=== PATIENT | male | born 1955 | race Caucasian/White ===

== ENCOUNTER 2020-07-16 07:53 | Emergency (ER) | payer MEDICARE ==
[~2020-07-16] VITALS: Ht 190.5 cm; Wt 79.5 kg
[2020-07-16 08:11] VITALS: TEMP 97.6
[2020-07-16 08:52] LABS: BASO # 0.1 (0.0-0.2); BASO % 0.5 % (0.0-2.0); EOS # 0.1 (0.0-0.7); EOS % 1.2 % (0-4.0); GRAN # 7.8 (1.4-6.5); GRAN % 72.8 % (42.2-75.2); HEMATOCRIT 43.3 % (42.0-52.0); HEMOGLOBIN 15.2 g/dl (13.5-18.0); INR 1.1 (0.8-3.0); LYMPH # 1.3 (1.2-3.4); MEAN CELL VOLUME 96 fl (80.0-100.0); MEAN CORPUSCULAR HEMOGLOBIN 34 pg (27.0-31.0); MEAN CORPUSCULAR HGB CONC 35 g/dl (33.0-37.0); MONO # 1.4 (0.1-0.6); PLATELET COUNT 168 K/mm3 (130-400); PROTHROMBIN TIME 11.9 SECONDS (9.7-12.8); RED BLOOD COUNT 4.51 M/mm3 (4.20-5.60); REDCELL DISTRIBUTION WIDTH-CV 13.4 % (11.5-14.5)
[2020-07-16 08:55] LABS: PARTIAL THROMBOPLASTIN TIME 31.3 SECONDS (26.0-37.0)
[2020-07-16 08:56] LABS: CALCIUM 9.2 mg/dL (8.4-10.2); CREATININE, serum 0.64 (0.66-1.25); POTASSIUM 3.2 mmol/L (3.4-5.0)
[2020-07-16] MEDS ORDERED: ELIQUIS 5MG PO (09:04)
[2020-07-16] MEDS ORDERED: NORCO 325 MG-51 TAB PO (09:05)
[2020-07-16 09:32] VITALS: BP 129/80; PULSE 91
== END 2020-07-16 09:35 | disposition home or self-care (01) ==
LOC: COL.ER 07:53
PROVIDERS: Physician Assistant
DX: I82.411 Acute embolism and thrombosis of right femoral vein (principal); F17.200 Nicotine dependence, unspecified, uncomplicated; Z86.12 Personal history of poliomyelitis; Z88.2 Allergy status to sulfonamides

== ENCOUNTER 2020-07-19 09:54 | Inpatient (IN) | payer MEDICARE, MEDICAID ==
[~2020-07-19] VITALS: Ht 190.5 cm; Wt 77.0 kg
[~2020-07-19 09:54] MED LIST: ELIQUIS 5MG PO; NORCO 325 MG-51 TAB PO
[2020-07-19 10:57] LABS: BASO # 0.1 (0.0-0.2); BASO % 0.5 % (0.0-2.0); EOS # 0.1 (0.0-0.7); EOS % 0.8 % (0-4.0); GRAN # 7.7 (1.4-6.5); GRAN % 75.9 % (42.2-75.2); HEMATOCRIT 41.2 % (42.0-52.0); HEMOGLOBIN 14.4 g/dl (13.5-18.0); LYMPH # 0.9 (1.2-3.4); MEAN CELL VOLUME 95 fl (80.0-100.0); MEAN CORPUSCULAR HEMOGLOBIN 33 pg (27.0-31.0); MEAN CORPUSCULAR HGB CONC 35 g/dl (33.0-37.0); MEAN PLATELET VOLUME 9.3 fl (7.4-10.4); MONO # 1.4 (0.1-0.6); MONO % 13.3 % (1.7-9.3); PLATELET COUNT 369 K/mm3 (130-400); RED BLOOD COUNT 4.34 M/mm3 (4.20-5.60)
[2020-07-19 11:19] LABS: ALANINE AMINOTRANSFERASE 25 U/L (4-49); ALKALINE PHOSPHATASE 95 U/L (50-136); ANION GAP 9 mmol/L (7-16); AST,SGOT 39 U/L (15-37); BLOOD UREA NITROGEN 6 mg/dL (9-20); CARBON DIOXIDE 29 mmol/L (22-30); CHLORIDE 98 mmol/L (98-107); GLUCOSE 106 mg/dL (74-106); POTASSIUM 3.1 mmol/L (3.4-5.0); SODIUM 136 mmol/L (137-145); TOTAL PROTEIN 8.1 gm/dL (6.4-8.2)
[2020-07-19 11:29] LABS: TROPONIN-I < 0.012 ng/mL (0.000-0.035)
[2020-07-19 11:57] LABS: C-REACTIVE PROTEIN 32.8 mg/dL (0.0-0.9)
[2020-07-19 13:35] LABS: INR 1.7 (0.8-3.0); PROTHROMBIN TIME 19.5 SECONDS (9.7-12.8)
[2020-07-19] MEDS ORDERED: LEVOXYL0.125 MG PO (14:49)
[2020-07-19] MEDS ORDERED: LEVOXYL0.137 MG PO (15:24)
[2020-07-19] MEDS ORDERED: ELIQUIS 5MG PO (15:24)
[2020-07-19 16:00] VITALS: BP 153/68; PULSE 101; TEMP 98.4
[2020-07-19 16:22] VITALS: BP 153/68; PULSE 102; TEMP 98.4
[2020-07-19 16:45] VITALS: BP 133/61; PULSE 102; TEMP 97.4
--- NOTE | 2020-07-19 16:52 | NUR ---
PT C/O PROFUSE SWEATING OF FACE. VSS, UPDATED ALLISON PA ON PT STATUS.
[2020-07-19 19:02] VITALS: BP 148/63; PULSE 101; TEMP 98.7
[2020-07-19 23:59] VITALS: BP 153/68; PULSE 86; TEMP 98.5
[2020-07-20] VITALS (7 sets, daily range): BP systolic 137–169; BP diastolic 67–75; PULSE 88–96; TEMP 98.4–99
--- NOTE | 2020-07-20 05:26 | NUR ---
Patient has rested well throughout the night. Calls for PRN pain medication about every 4 hours. Reassessments throughout the night and patient is asleep, but this morning patient states the medication is only "taking the edge off." He states he wants to talk to the doctor on rounds to possibly increase his pain medication. Will pass this along to day shift nurse. Lovenox administered per orders. Patient utilizes 1A with walker. Patient's lungs diminished bilaterally. Denies any further needs. Will continue to monitor.
[2020-07-20 06:53] LABS: BASO % 0.4 % (0.0-2.0); EOS # 0.1 (0.0-0.7); EOS % 0.7 % (0-4.0); GRAN # 7.8 (1.4-6.5); GRAN % 74.3 % (42.2-75.2); HEMATOCRIT 38.5 % (42.0-52.0); HEMOGLOBIN 13.1 g/dl (13.5-18.0); LYMPH # 1.1 (1.2-3.4); LYMPH % 10.8 % (20.0-51.0); MEAN CELL VOLUME 96 fl (80.0-100.0); MEAN CORPUSCULAR HEMOGLOBIN 33 pg (27.0-31.0); MEAN CORPUSCULAR HGB CONC 34 g/dl (33.0-37.0); MEAN PLATELET VOLUME 10.1 fl (7.4-10.4); MONO # 1.4 (0.1-0.6); MONO % 13.2 % (1.7-9.3); PLATELET COUNT 417 K/mm3 (130-400); REDCELL DISTRIBUTION WIDTH-CV 13.1 % (11.5-14.5)
[2020-07-20 07:05] LABS: CALCIUM 8.8 mg/dL (8.4-10.2); CREATININE, serum 0.52 (0.66-1.25); MAGNESIUM 1.7 mg/dL (1.6-2.3); POTASSIUM 3.4 mmol/L (3.4-5.0)
--- NOTE | 2020-07-20 07:57 | NUR ---
Patient resting in bed. He reports pain to his chest not relieved with norco. Hospitalist notifed & orders obtained. Patient given low dose of morphine per orders. Patient reports morphine did help when his was admitted throught the Er. Patient ate small amount of breakfast, minimal interest. Will continue to monitor.
--- NOTE | 2020-07-20 09:46 | NUR ---
Patient resting in bed. Reports the morphine made him lightheaded, but did not relieve pain. Next dose of [place] given, I discusses with him given [place] q4 hours to stay on top of pain and not getting behind. Patient provided with hygiene supplies. Will monitor.
--- NOTE | 2020-07-20 11:26 | NUR ---
Hospitalist rounded, increase in orders for pain medication. Medication per orders. Patient very dyspnic with exertion.
--- NOTE | 2020-07-20 14:22 | NUR ---
Patient pain still unmanaged at this time. notifed, morphine to be given one hour sooner.
--- NOTE | 2020-07-20 15:03 | NUR ---
Plan: To return home, lives independently. Assessment: Patient reports that he resides in an apartment locally. Patient shares that his Son Jorge Luis is his EMR contact . Patient reports that he obtains medications at [facility]. Patient reports his PCP is Dr. Bishop with [facility] on Jul 26. Patient reports that he uses a walker for mobility. Patient reports that he is interested in home health care but does not believe that insurance will cover it. Patient reports that he is concerned with medications cost. Action: SW educated patient about savings card through [employer] for patient copay card. Patient indicated that he has it but had not used it yet. Gave patient application for medication fund through [employer]. Will continue to work with client for support service and follow up on home health.
--- NOTE | 2020-07-20 17:38 | NUR ---
Patient sat up for dinner. Continues to refuse shower or assistance with bed bath. I stressed the importance of coughing deep breathing even if it hurts to prevent pnemonia. Orders for IS obtained. Patient has minimal interest in dinner. Pain medication to be given when next dose due.
--- NOTE | 2020-07-21 03:15 | NUR ---
information technology security manager called with reports of increased heart rate. Vitals-152/66, pulse 105, O2 Sat 93% resps 16, temp 98.3. Had been up to urinate and medicated with Hydrocodone for pain prior to. Call light in reach. Will monitor.
--- NOTE | 2020-07-21 03:17 | NUR ---
Called with c/o pain to chest area. Describing pain as constant ache with deep breathing. Hydrocodone given per dr order.
[2020-07-21 03:22] VITALS: BP 152/66; PULSE 105; TEMP 98.3
--- NOTE | 2020-07-21 03:41 | NUR ---
Still rating pain 7/10 on pain scale to chest-morphine given per dr order.
--- NOTE | 2020-07-21 05:00 | NUR ---
Patient has rested well throughout the night. PRN Jasper and morphine given as ordered and requested. Patient's pain level was at a 5/10 at the lowest. Patient states this is tolerable. Continues on Lovenox injections. Tolerates this well. Utilizes 1 assist from staff for ambulation to the restroom. Denies any further needs. Will continue to monitor.
[2020-07-21 06:15] LABS: BASO % 0.3 % (0.0-2.0); EOS % 0.3 % (0-4.0); GRAN # 10.7 (1.4-6.5); GRAN % 80.3 % (42.2-75.2); HEMATOCRIT 37.9 % (42.0-52.0); HEMOGLOBIN 12.8 g/dl (13.5-18.0); LYMPH # 1.1 (1.2-3.4); LYMPH % 7.9 % (20.0-51.0); MEAN CELL VOLUME 97 fl (80.0-100.0); MEAN CORPUSCULAR HEMOGLOBIN 33 pg (27.0-31.0); MEAN CORPUSCULAR HGB CONC 34 g/dl (33.0-37.0); MEAN PLATELET VOLUME 9.6 fl (7.4-10.4); MONO # 1.4 (0.1-0.6); MONO % 10.8 % (1.7-9.3); PLATELET COUNT 443 K/mm3 (130-400); RED BLOOD COUNT 3.91 M/mm3 (4.20-5.60); REDCELL DISTRIBUTION WIDTH-CV 13.2 % (11.5-14.5)
[2020-07-21 06:29] LABS: ALBUMIN 3.4 gm/dL (3.5-5.0); BILIRUBIN,TOTAL 1.1 mg/dL (0.0-1.0); CALCIUM 8.9 mg/dL (8.4-10.2); CREATININE, serum 0.55 (0.66-1.25); MAGNESIUM 1.6 mg/dL (1.6-2.3); POTASSIUM 3.9 mmol/L (3.4-5.0); TOTAL PROTEIN 7.1 gm/dL (6.4-8.2)
[2020-07-21 07:48] VITALS: BP 134/74; PULSE 72; TEMP 98.1
--- NOTE | 2020-07-21 09:42 | NUR ---
PATIENT WAS UP WALKING IN THE HALLWAYS WITH THERAPY THIS MORNING. PATIENT IS CURRENTLY RESTING IN BED. PATIENT RATING HIS PAIN A 7/10 ACROSS HIS LOW RIBS AND CHEST. PATIENT IS UNABLE TO DESCRIBE HIS PAIN. GIVEN PRN PAIN MEDICATION AT THIS TIME. PATIENT HAS GENERALIZED WEAKNESS. C/O DYSPNEA AND SOB WITH EXERTION. ALL LUNG BEASLEY DIMINISHED. PATIENT REPORTS HAVING A DIFFICULT TIME COUGHING DUE TO THE PAIN. TACHYCARDIA NOTED, OTHERWISE VSS. TELE IN PLACE. POTASSIUM REPLACED PER PROTOCOL. PATIENT REPORTS THAT HIS LEFT GLASSES LENS FELL OUT AND HE'S HAVING A HARD TIME WITH HIS VISION WITHOUT THAT LENS. PATIENT REQUESTED AN EYE PATCH TO BE PLACED OVER HIS LEFT EYE. EYE PATCH APPLIED WITH PAPER TAPE. CALL LIGHT WITHIN REACH. PATIENT DENIES ANY OTHER NEEDS AT THIS TIME. WILL CONTINUE TO MONITOR.
--- NOTE | 2020-07-21 10:47 | NUR ---
PATIENT CONTINUES TO REPORT HIS PAIN AT A 7/10 ON A 0-10 SCALE. PATIENT STATES THAT IT DID NOT COME DOWN MUCH WITH THE PO PAIN PILL. PATIENT GIVEN PRN IV PAIN MEDICATION AT THIS TIME. WILL CONTINUE TO MONITOR.
--- NOTE | 2020-07-21 11:17 | NUR ---
PATIENT CURRENTLY REPORTS HIS PAIN LEVEL A 5/10 ON A 0-10 SCALE. PATIENT STATES THAT THE PAIN IS MUCH MORE TOLERABLE NOW. WILL CONTINUE TO MONITOR.
[2020-07-21 11:30] VITALS: BP 143/72; PULSE 87; TEMP 98
--- NOTE | 2020-07-21 15:36 | NUR ---
JUDITH DUNN CALLED AND NOTIFIED THAT THE PATIENT IS STILL HAVING A SIGNIFICANT AMOUNT OF PAIN WITH ALTERNATING THE NORCO AND MORPHINE.
--- NOTE | 2020-07-21 16:30 | NUR ---
REPORTED OFF TO KATERYNA GRIFFIN.
[2020-07-21 16:34] VITALS: BP 128/71; PULSE 90; TEMP 98
--- NOTE | 2020-07-21 16:34 | NUR ---
Report received from Merline Mejia. Pt in bed resting , denies needs, will continue to monitor
--- NOTE | 2020-07-21 18:17 | NUR ---
Pt doing well, resting in bed watching [employer] football game, denies pain or other needs, taking PO well, will give bedside shift reoprt to nightshift nurse who will resume care.
[2020-07-21 19:42] VITALS: BP 116/64; PULSE 100; TEMP 99.1
[2020-07-21 23:19] VITALS: BP 125/71; PULSE 89; TEMP 98.1
[2020-07-22 04:00] VITALS: BP 137/68; PULSE 83; TEMP 98
--- NOTE | 2020-07-22 04:04 | NUR ---
Patient has rested well throughout the night. Patient states the increase of [place] dosage has been helpful to reduce his pain. Patient's pain level has been able to decrease to 5/10. Administered the ultram that was added to patient's pain regimen. Patient stated this was not effective and did not help reduce his pain. No IV morphine has been administered as of yet this shift. Eye patch noted to left eye. Utilizes one assist with walker for ambulation, but utilizes urinal throughout the night. Urine noted to be a dark tri. Denies any further needs. Will continue to monitor.
[2020-07-22 07:51] VITALS: BP 121/70; PULSE 86; TEMP 97.9
[2020-07-22 08:04] LABS: BASO # 0.1 (0.0-0.2); BASO % 0.4 % (0.0-2.0); EOS # 0.2 (0.0-0.7); EOS % 1.8 % (0-4.0); GRAN # 9.6 (1.4-6.5); GRAN % 77.5 % (42.2-75.2); HEMATOCRIT 37.4 % (42.0-52.0); HEMOGLOBIN 12.6 g/dl (13.5-18.0); LYMPH # 1.2 (1.2-3.4); LYMPH % 9.5 % (20.0-51.0); MEAN CELL VOLUME 97 fl (80.0-100.0); MEAN CORPUSCULAR HEMOGLOBIN 33 pg (27.0-31.0); MEAN CORPUSCULAR HGB CONC 34 g/dl (33.0-37.0); MEAN PLATELET VOLUME 9.9 fl (7.4-10.4); MONO # 1.2 (0.1-0.6); MONO % 9.8 % (1.7-9.3); PLATELET COUNT 479 K/mm3 (130-400); RED BLOOD COUNT 3.84 M/mm3 (4.20-5.60); REDCELL DISTRIBUTION WIDTH-CV 13.2 % (11.5-14.5)
[2020-07-22 08:15] LABS: CALCIUM 8.8 mg/dL (8.4-10.2); CREATININE, serum 0.65 (0.66-1.25); MAGNESIUM 1.9 mg/dL (1.6-2.3); POTASSIUM 3.9 mmol/L (3.4-5.0)
--- NOTE | 2020-07-22 10:10 | NUR ---
PT RESTING IN BED, HOSPITALIST IN TO SEE PATEINT NEW ORDERS RECIEVED. RT TO CONDUCT EXERCISE OXYCIMETRY.
--- NOTE | 2020-07-22 10:18 | NUR ---
Initial visit; Patient thanked Pan Washer Hand for looking in on him and offering God's blessings and keeping him in her prayers.
--- NOTE | 2020-07-22 10:37 | NUR ---
Lining Brusher attended clinical rounds with the team. The patient is to receive a discount card from Pharmacy for Eliquis for a month. The patient is to follow up with Dr. Nuñez about affording Eliquis after that month. DEDRICK confirmed with Alva Stoll that the patient's Medicare is active and he does have Part D coverage. DEDRICK presentd the IM form to the patient. The patient understood and gave SW permission to sign the form. A copy was provided to the patient and original was placed in the chart. DEDRICK discussed HHS with the patient and presented Medicare.gov's list of agencies. The patient chose [facility]. DEDRICK faxed referral. DEDRICK contacted Michelle with [facility] to inform her of the referral. She will review the referral once she receives it. Will continue to monitor.
--- NOTE | 2020-07-22 10:55 | NUR ---
PATIENT NEEDS NO OXYGEN AT REST OR AMBULATING, SPO2 95% WHILE AMBULATING ON RA.
[2020-07-22 11:22] VITALS: BP 118/61; PULSE 83; TEMP 98
[2020-07-22] MEDS ORDERED: ELIQUIS 5MG PO (11:32)
[2020-07-22] MEDS ORDERED: NORCO 325 MG-7.1 TAB PO (11:33)
--- NOTE | 2020-07-22 13:15 | NUR ---
The patient is to discharge home today, 07/22 with [facility]. PT/OT/Nursing services. DEDRICK faxed discharge orders. An exercise oximetry was ordered for the patient but he did not meet criteria for home oxygen at this time. DEDRICK provided information to the patient to set up transportation to appointments through his secondary Medicaid ([facility]). There are no additional needs at this time.
== END 2020-07-22 13:15 | disposition home health service (06) | DRG 299 ==
LOC: COL.ER 09:54 → SURG 15:35
PROVIDERS: Nurse Practitioner; Physician Assistant; ADMIT Family Medicine
DX: I82.401 Acute embolism and thrombosis of unspecified deep veins of right lower extremity (principal); I26.99 Other pulmonary embolism without acute cor pulmonale; I50.32 Chronic diastolic (congestive) heart failure; E87.6 Hypokalemia; I71.4 Abdominal aortic aneurysm, without rupture; J43.9 Emphysema, unspecified; E03.9 Hypothyroidism, unspecified; L80 Vitiligo; E78.1 Pure hyperglyceridemia; D64.9 Anemia, unspecified; F17.210 Nicotine dependence, cigarettes, uncomplicated; Z88.2 Allergy status to sulfonamides
CPT/HCPCS: 99222-AI; 99232-AI; 99233-AI; 99239; A9284; J1650; J2270; J3475; Q9967

== ENCOUNTER → 2020-10-29 | Outpatient (CLI) | payer MEDICARE, MEDICAID ==
[~2020-10-29] MED LIST changes: +LEVOXYL0.125 MG PO; +LEVOXYL0.137 MG PO; +NORCO 325 MG-7.1 TAB PO
== END ==
LOC: COL.RAD 12:57
DX: I26.94 Multiple subsegmental thrombotic pulmonary emboli without acute cor pulmonale (principal); Z86.718 Personal history of other venous thrombosis and embolism
CPT/HCPCS: Q9967

== ENCOUNTER 2021-10-06 10:21 | Emergency (ER) | payer MEDICARE, MEDICAID ==
[~2021-10-06] VITALS: Ht 190.5 cm; Wt 75.0 kg
[2021-10-06] MEDS ORDERED: ELIQUIS 5MG PO (10:35)
[2021-10-06 11:36] LABS: BASO # 0.1 K/mm3 (0.0-0.2); BASO % 1.2 % (0.0-2.0); EOS % 0.2 % (0-4.0); GRAN # 3.6 K/mm3 (1.4-6.5); LYMPH # 1.1 K/mm3 (1.2-3.4); LYMPH % 21.2 % (20.0-51.0); MEAN CELL VOLUME 93 fl (80.0-100.0); MEAN CORPUSCULAR HEMOGLOBIN 33 pg (27.0-31.0); MEAN CORPUSCULAR HGB CONC 35 g/dl (33.0-37.0); MEAN PLATELET VOLUME 10.1 fl (7.4-10.4); MONO # 0.4 K/mm3 (0.1-0.6); MONO % 7.8 % (1.7-9.3); PLATELET COUNT 253 K/mm3 (130-400); RED BLOOD COUNT 3.67 M/mm3 (4.20-5.60); REDCELL DISTRIBUTION WIDTH-CV 15.9 % (11.5-14.5)
[2021-10-06 11:39] LABS: HEMATOCRIT 34.2 % (42.0-52.0)
[2021-10-06 11:57] LABS: ERYTHROCYTE SEDIMENTATION RATE 7 mm/hr (0-30)
[2021-10-06 11:59] LABS: ALBUMIN 3.2 gm/dL (3.4-4.8); BILIRUBIN,TOTAL 1.5 mg/dL (0.2-1.2); CALCIUM 9.2 mg/dL (8.4-10.2); CREATININE, serum 0.72 mg/dL (0.72-1.25); POTASSIUM 3.1 mmol/L (3.5-4.5); TOTAL PROTEIN 6.5 gm/dL (6.2-8.1)
[2021-10-06] MEDS ORDERED: PERCOCET 325 MG1 TA2 PO (15:51)
[2021-10-06 16:35] VITALS: BP 146/64; PULSE 88; TEMP 97.8
[2021-10-07] MEDS ORDERED: PERCOCET 325 MG1 TA2 PO ×2 (10:22→12:09)
== END 2021-10-06 16:35 | disposition home or self-care (01) ==
LOC: COL.ER 10:21
PROVIDERS: Personal Emergency Response Attendant
DX: S72.112A Displaced fracture of greater trochanter of left femur, initial encounter for closed fracture (principal); W19.XXXA Unspecified fall, initial encounter
CPT/HCPCS: A9575; J2270; J2405